=== PATIENT | female | born 1950 | race Caucasian/White ===

== ENCOUNTER 2017-03-07 10:28 | Emergency (ER) | payer MEDICARE, MEDICAID ==
[~2017-03-07] VITALS: Ht 162.6 cm; Wt 61.2 kg
--- OUTSIDE RECORDS SUMMARY | 2017-03-07 10:38 | External Medical Summary Rpt ---
Author Author NILE Mejía, [employer] Organization [employer] Address Unknown Phone Unavailable Results Comprehensive metabolic 2000 panel in Serum or Plasma Observa Value Referen Units Interpr Notes Date tion ce etation Range Albumin/G 1.1 - 1.8 No Normal No Nov 27 lobulin informati informati 2016 8:25 [Mass on in on in AM ratio] in source source Serum or data data Plasma Albumin 3.4 - 5.0 gm/dL Normal No Nov 27 [Mass/vol informati 2016 8:25 ume] in on in AM Serum or source Plasma data Alkaline 46 - 116 U/L High No Nov 27 phosphata informati 2016 8:25 se on in AM [Enzymati source c data activity/ volume] in Serum or Plasma Bilirubin 0.2 - 1.0 mg/dL Normal No Nov 27 .total informati 2016 8:25 [Mass/vol on in AM ume] in source Serum or data Plasma Urea 7 - 18 mg/dL Normal No Nov 27 nitrogen informati 2016 8:25 [Mass/vol on in AM ume] in source Serum or data Plasma Calcium 8.5 - mg/dL Normal No Nov 27 [Mass/vol 10.1 informati 2017 8:25 ume] in on in AM Serum or source Plasma data Chloride 98 - 107 mmoL/L Normal No Nov 27 [Moles/vo informati 2016 8:25 lume] in on in AM Serum or source Plasma data Carbon 21.0 - mmoL/L Normal No Nov 27 dioxide, 32.0 informati 2017 8:25 total on in AM [Moles/vo source lume] in data Serum or Plasma Creatinin 0.55 - mg/dL Normal No Nov 27 e 1.02 informati 2016 8:25 [Mass/vol on in AM ume] in source Serum or data Plasma Estimated 59- ML/MIN No REFERENCE Nov 27 informati RANGE: 2017 8:25 glomerula on in >60 AM r source ML/MIN/1. filtratio data 73 SQUARE n rate METERSIf (GF this patient is -A merican, then multiply theresult by 1.210. Globulin 1.3 - 3.2 gm/dL Normal No Nov 27 [Mass/vol informati 2016 8:25 ume] in on in AM Serum source data Glucose 74 - 106 mg/dL Normal No Nov 27 [Mass/vol informati 2016 8:25 ume] in on in AM Serum or source Plasma data Potassium 3.5 - 5.1 mmoL/L Normal No Nov 27 inform2016 8:25 [Moles/vo on in AM lume] in source Serum or data Plasma Sodium 136 - 145 mmoL/L Normal No Nov 27 [Moles/vo informati 2016 8:25 lume] in on in AM Serum or source Plasma data Aspartate 15 - 37 U/L Normal No Nov 27 inform2016 8:25 aminotran on in AM sferase source [Enzymati data c activity/ volume] in Serum or Plasma Alanine 12 - 78 U/L Normal No Nov 27 aminotran informati 2016 8:25 sferase on in AM [Enzymati source c data activity/ volume] in Serum or Plasma Protein 6.4 - 8.2 gm/dL Normal No Nov 27 [Mass/vol informati 2016 8:25 ume] in on in AM Serum or source Plasma data Lipid 1996 panel in Serum or Plasma Observa Value Referen Units Interpr Notes Date tion ce etation Range Cholester < 200 mg/dL No No Nov 27 ol informati informati 2016 8:25 [Moles/vo on in on in AM lume] in source source Unspecifi data data ed specimen Cholester 40 - 60 MG/DL Normal No Nov 27 ol in HDL informati 2016 8:25 on in AM [Mass/vol source ume] in data Serum or Plasma Cholester 0 - 130 mg/dL Normal No Nov 27 ol in LDL informati 2016 8:25 on in AM [Mass/vol source ume] in data Serum or Plasma by calculati on Triglycer 30 - 200 mg/dL Normal No Nov 27 cliff informati 2016 8:25 [Moles/vo on in AM lume] in source Serum or data Plasma Cholester 0 - 40 No Normal No Nov 27 ol in informati informati 2016 8:25 VLDL on in on in AM [Mass/vol source source ume] in data data Serum or Plasma Thyrotropin [Units/volume] in Serum or Plasma Observa Value Referen Units Interpr Notes Date tion ce etation Range Thyrotrop 0.358 - uIU/ml Normal No Nov 27 in 3.740 informati 2017 8:25 [Units/vo on in AM lume] in source Serum or data Plasma
--- OUTSIDE RECORDS SUMMARY | 2017-03-07 10:38 | External Medical Summary Rpt | CCD ---
Author Author , NILE DOWD Address Unknown Phone [email or web address] Providers Care Financial Analysis Manager Name Role Phone ANGLE GRIMES, Unavailable Unavailable ANGLE GRIMES JOHN C, Unavailable Unavailable DONTE ROJAS [facility] [place]available [place] [facility], [facility] Unavailable CLINIC, [facility] Unavailable Unavailable INTERNAL MED, [facility] INTER[facility] DARRYL HOLLINGSWORTH, Unavailable Unavailable DARRYL HOLLINGSWORTH [facility], Unavailable Unavailable [facility] Purpose Continuity of Care Document - 08-17-2008 through 2016 Problems Code Diagnosis DOS Provider Status E039 HYPOTHYROID 11-27-2016 [facility] UNSPECIFIED INC E785 HYPERLIPIDE 11-27-2016 [facility] UNSPEC[facility]IED INC 2449 UNSPECIFIED 04-28-2013 [facility] HYPOTHYROID [place] IS[place] 41130 DIAB W/O 04-28-2013 [facility] COMP TYPE PHYSICIANS II/UNS NOT LA STATED UNCNTRL 2724 OTHER AND 04-28-2013 [facility] UNSPECIFIED PHYSICIANS [place] HYPERLIPIDE MARVA V5869 LONG-TERM 04-28-2013 [facility]BINED (CURRENT) PHYSICIANS USE OF [place] OTHER MEDICATIONS 99359 NUCLEAR 09-18-2012 [facility] SCLEROSIS GRE 11433 UNSPECIFIED 09-18-2012 [facility] SUBJECTIVE GRE VISUAL DISTURBANCE 50584 OTHER 09-18-2012 [facility] VISUAL GRE DISTORTIONS AND ENTOPTIC PHENOMENA 63556 OTHER 09-18-2012 [facility] VITREOUS GRE OPACITIES 6929 CONTACT 08-27-2012 [facility] DERMATITIS& HEALTH OTHER CLINIC [facility] DUE UNSPEC CAUSE 2722 MIXED 05-25-2012 [facility] HYPERLIPIDE [facility] CLINIC 4611 ACUTE 05-25-2012 ON LICENSE OF [facility] SINUSITIS CLINIC 462 ACUTE 05-25-2012 [facility] PHARYNGITIS HEALTH CLINIC 6926 CONTACT 09-21-2010 [facility] [place] OTHER INTERNAL ECZEMA DUE MED TO PLANTS 82068 OCCL&STENOS 05-18-2009 [facility] 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 7804 DIZZINESS 05-18-2009 [facility] PSC 39236 ALTERED 05-18-2009 [facility] STATUS 7840 HEADACHE 05-18-2009 [facility] PSC 7842 SWELLING 05-18-2009 [facility] LUMP IN HEAD AND NECK 29048 SPASM OF 05-17-2009 [facility] INTERNAL MED 87072 CHEST PAIN 05-17-2009 [facility] UNSPECIFIED [facility] INTERNAL MED 7262 OTHER 05-08-2009 [facility] AFFECTIONS [facility] OF SHOULDER INTERNAL REGION NEC MED 7820 DISTURBANCE 05-08-2009 [facility] SENSATION INTERNAL MED 7242 LUMBAGO 08-17-2008 [facility] Encounters Encounter Start End Date Code Location Performer Type Date [facility] - 7 7 [facility] [address] [place] [address], [address] CRITICAL LIN[facility] WIGGINS 0 0 [facility]
--- OUTSIDE RECORDS SUMMARY | 2017-03-07 10:38 | External Medical Summary Rpt | CCD ---
Author Author , NILE DOWD Address Unknown Phone [email or web address] Care Team Providers Care Warehouse Worker Name Role Phone ANGLE GRIMES, Unavailable Unavailable ANGLE GRIMES JOHN C, Unavailable Unavailable DONTE ROJAS [facility] Unavailable [place]available [place] [place] [facility] Unavailable Unavailable [facility], [facility] Unavailable Unavailable CLINIC, [facility] Unavailable Unavailable INTERNAL MED, [facility] INTERNAL MED DARRYL HOLLINGSWORTH, Unavailable Unavailable DARRYL HOLLINGSWORTH [facility], Unavailable Unavailable [facility] Purpose Continuity of Care Document - 08-17-2008 through 2016 Problems Code Diagnosis DOS Provider Status E039 HYPOTHYROID 11-27-2016 [facility] UNSPEC[facility]IED [facility] E785 HYPERLIPIDE 11-27-2016 [facility] UNSPEC[facility]IED INC 2449 UNSPECIFIED 04-28-2013 [facility] HYPOTHYROID [place] IS[place] 09551 DIAB W/O 04-28-2013 [facility] COMP TYPE PHYSICIANS II/UNS NOT [place] STATED UNCNTRL 2724 OTHER AND 04-28-2013 [facility] UNSPECIFIED PHYSICIANS [place] HYPERLIPIDE [facility] V5869 LONG-TERM 04-28-2013 [facility]BINED (CURRENT) PHYSICIANS USE OF [place] OTHER MEDICATIONS 39484 NUCLEAR 09-18-2012 [facility] SCLEROSIS GRE 64859 UNSPECIFIED 09-18-2012 [facility] SUBJECTIVE GRE VISUAL DISTURBANCE 92468 OTHER 09-18-2012 [facility] VISUAL GRE DISTORTIONS AND ENTOPTIC PHENOMENA 84642 OTHER 09-18-2012 [facility] VITREOUS GRE OPACITIES 6929 CONTACT 08-27-2012 [facility] DERMATITIS& HEALTH OTHER CLINIC [facility] DUE UNSPEC CAUSE 2722 MIXED 05-25-2012 [facility] HYPERL[facility]IDE [facility] 4611 ACUTE 05-25-2012 [facility] SINUSITIS CLINIC 462 ACUTE 05-25-2012 [facility] PHARYNGITIS [facility]ALTH CLINIC 6926 CONTACT 09-21-2010 [facility] [place] OTHER INTERNAL [place]ZEMA DUE MED TO PLANTS 76795 OCCL&STENOS 05-18-2009 [facility] [place] [facility] 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 7804 DIZZINESS 05-18-2009 [facility] [place] [facility] PSC 16885 ALTERED 05-18-2009 [facility] STATUS 7840 HEADACHE 05-18-2009 [facility] [facility] PSC 7842 SWELLING 05-18-2009 [facility] LUMP IN HEAD AND NECK 20261 SPASM OF 05-17-2009 [facility] [place] INTERNAL MED 76916 CHEST PAIN 05-17-2009 [facility] UNSPECIFIED [facility] INTERNAL MED 7262 OTHER 05-08-2009 [facility] AFFECTIONS [facility] OF SHOULDER INTERNAL REGION NEC MED 7820 DISTURBANCE 05-08-2009 [facility] SENSATION INTERNAL MED 7242 LUMBAGO 08-17-2008 [facility] Encounters Encounter Start End Date Code Location Performer Type Date [facility] - [address] [facility] [address] [place] [address] CLINIC, [facility] [address] [place] [address] CRITICAL [facility] 0 0 [facility]
--- OUTSIDE RECORDS SUMMARY | 2017-03-07 10:38 | External Medical Summary Rpt | CCD ---
Author Author , NILE DOWD Address Unknown Phone [email or web address] Immunization Name Date Rout CVX Reac Dose Comm Prov Is Faci e tion ent ider Refu lity Give sed n Infl 10-2 Intr 0.5 Hist PD20 No PD20 uenz 4-20 amus mL oric 256 256 a 17 cula al Quad r Info rmat W/Pr ion es - Sour ce Unsp ecif ied
--- OUTSIDE RECORDS SUMMARY | 2017-03-07 10:38 | External Medical Summary Rpt | CCD ---
Author Author , NILE DOWD Address Unknown Phone [email or web address] Care Team Providers Care Lead Solutions Architect Name Role Phone ANGLE GRIMES, Unavailable Unavailable ANGLE GRIMES JOHN C, Unavailable Unavailable DONTE ROJAS [facility] Unavailable [place]available [place] [place] [facility] Un[facility], [facility] Unavailable CLINIC, [facility] Unavailable Unavailable INTERNAL MED, [facility] INTERNAL MED DARRYL HOLLINGSWORTH, Unavailable Unavailable DARRYL HOLLINGSWORTH [facility], Unavailable Unavailable [facility] Purpose Continuity of Care Document - 08-17-2008 through 2016 Problems Code Diagnosis DOS Provider Status E039 HYPOTHYROID 11-27-2016 [facility] UNSPEC[facility] E785 HYPERLIPIDE 11-27-2016 [facility] UNSPEC[facility]IED INC 2449 UNSPECIFIED 04-28-2013 [facility] HYPOTHYROID [place] IS[place] 87591 DIAB W/O 04-28-2013 [facility] COMP TYPE PHYSICIANS II/UNS NOT [place] STATED UNCNTRL 2724 OTHER AND 04-28-2013 [facility] UNSPECIFIED PHYSICIANS [place] HYPERLIPIDE [facility] V5869 LONG-TERM 04-28-2013 [facility] (CURRENT) PHYSICIANS USE OF [place] OTHER MEDICATIONS 09362 NUCLEAR 09-18-2012 [facility] SCLEROSIS GRE 26293 UNSPECIFIED 09-18-2012 [facility] SUBJECTIVE GRE VISUAL DISTURBANCE 26350 OTHER 09-18-2012 [facility] VISUAL GRE DISTORTIONS AND ENTOPTIC PHENOMENA 24819 OTHER 09-18-2012 [facility] VITREOUS GRE OPACITIES 6929 CONTACT 08-27-2012 [facility] DERMATITIS& HEALTH OTHER CLINIC EC[facility] DUE UNSPEC CAUSE 2722 MIXED 05-25-2012 [facility] HYPERLIPIDE [facility] CL[facility]IC 4611 ACUTE 05-25-2012 [facility] SINUSITIS CLINIC 462 ACUTE 05-25-2012 [facility] PHARYNGITIS HEALTH CLINIC 6926 CONTACT 09-21-2010 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 7804 DIZZINESS 05-18-2009 [facility] PSC 70167 ALTERED 05-18-2009 [facility] STATUS 7840 HEADACHE 05-18-2009 [facility] PSC 7842 SWELLING 05-18-2009 [facility] LUMP IN HEAD AND NECK 39226 SPASM OF 05-17-2009 [facility] INTER[facility] MED 28878 CHEST PAIN 05-17-2009 [facility] UNSPECIFIED [facility] INTERNAL MED 7262 OTHER 05-08-2009 [facility] AFFECTIONS [facility] OF SHOULDER INTERNAL REGION NEC MED 7820 DISTURBANCE 05-08-2009 [facility] SENSATION INTERNAL MED 7242 LUMBAGO 08-17-2008 [facility] Encounters Encounter Start End Date Code Location Performer Type Date [facility] - 7 7 [facility] [address] [place] [address], [address] CRITICAL LINDA WIGGINS 0 0 [facility]
--- OUTSIDE RECORDS SUMMARY | 2017-03-07 10:38 | External Medical Summary Rpt | CCD ---
Author Author , NILE DOWD Address Unknown Phone [email or web address] Immunization Name Date Rout CVX Reac Dose Comm Prov Is Faci e tion ent ider Refu lity Give sed n Infl 10-2 Intr 0.5 Hist PD20 No PD20 uenz 4-20 amus mL oric 256 256 a 17 cula al Quad r Info rmat W/Pr ion es - Sour ce Unsp ecif ied
--- OUTSIDE RECORDS SUMMARY | 2017-03-07 10:38 | External Medical Summary Rpt | CCD ---
Author Author , NILE DOWD Address Unknown Phone [email or web address] Care Team Providers Care Solutions Manager Name Role Phone ANGLE GRIMES, Unavailable Unavailable ANGLE GRIMES JOHN C, Unavailable Unavailable DONTE ROJAS [facility] Unavailable [place]available [place] [facility] [place] [facility] Unavailable Unavailable [facility], [facility] Unavailable Unavailable CLINIC, [facility] Unavailable Unavailable INTERNAL MED, [facility] INTERNAL MED DARRYL HOLLINGSWORTH, Unavailable Unavailable DARRYL HOLLINGSWORTH [facility], Unavailable Unavailable [facility] Purpose Continuity of Care Document - 08-17-2008 through 2016 Problems Code Diagnosis DOS Provider Status E039 HYPOTHYROID 11-27-2016 [facility] UNSPEC[facility]IED INC E785 HYPERLIPIDE 11-27-2016 [facility] UNSPECIFIED INC 2449 UNSPECIFIED 04-28-2013 [facility] HYPOTHYROID [place] ISM 99171 DIAB W/O 04-28-2013 [facility] COMP TYPE PHYSICIANS II/UNS NOT LA STATED UNCNTRL 2724 OTHER AND 04-28-2013 [facility] UNSPECIFIED PHYSICIANS [place] HYPERLIPIDE [facility] V5869 LONG-TERM 04-28-2013 COMBIN[facility] (CURRENT) PHYSICIANS USE OF [place] OTHER MEDICATIONS 68189 NUCLEAR 09-18-2012 [facility] SCLEROSIS GRE 04491 UNSPECIFIED 09-18-2012 [facility] SUBJECTIVE GRE VISUAL DISTURBANCE 84247 OTHER 09-18-2012 [facility] VISUAL GRE DISTORTIONS AND ENTOPTIC PHENOMENA 95360 OTHER 09-18-2012 [facility] VITREOUS GRE OPACITIES 6929 CONTACT 08-27-2012 [facility] DERMATITIS& HEALTH OTHER CLINIC ECZ[facility] DUE UNSPEC CAUSE 2722 MIXED 05-25-2012 [facility] HYPERLIPIDE HEALTH [facility] CLINIC 4611 ACUTE 05-25-2012 [facility] SINUSITIS CLINIC 462 ACUTE 05-25-2012 [facility] PHARYNGITIS HEALTH CLINIC 6926 CONTACT 09-21-2010 [facility] [place] OTHER INTERNAL ECZ[place] DUE MED TO PLANTS 55605 OCCL&STENOS 05-18-2009 [facility] 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 7804 DIZZINESS 05-18-2009 [facility] PSC 70015 ALTERED 05-18-2009 [facility] STATUS 7840 HEADACHE 05-18-2009 [facility] PSC 7842 SWELLING 05-18-2009 [facility] LUMP IN HEAD AND NECK 67503 SPASM OF 05-17-2009 [facility] [place] INTERNAL MED 22353 CHEST PAIN 05-17-2009 [facility] UNSPECIFIED VALLEY INTERNAL MED 7262 OTHER 05-08-2009 [facility]FFE[facility] OF SHOULDER INTERNAL REGION NEC MED 7820 DISTURBANCE 05-08-2009 [facility] SENSATION INTERNAL MED 7242 LUMBAGO 08-17-2008 [facility] Encounters Encounter Start End Date Code Location Performer Type Date [facility] - 7 7 [facility] [address] [place] [address] CLINIC, [facility] [address] [place] [address] CRITICAL [facility] 0 0 [facility]
--- NOTE | 2017-03-07 10:52 | Urgent Treatment Center Report ---
History of Present Issue Date/Time Seen by Provider 03/07/17 1045 Visit Reason Pt arrived:Walked Presenting Problem:SORE THROAT, EAR ACHE BEGAN LAST NIGHT Location if Accident: Onset of symptoms date/time:/ or onset unknown for:MEDICAL HX UNKNOWN Have you (or family members/close friends) recently traveled outside the [place]? N If Yes, where/when: Have you had exposure to infectious disease within the past month? TB? Other? Specify: Patient state that she has been having pain in her right ear and her throat State that it hurts to swallow and she feels like her ear is swollen States that earache began last night and has continued to get worse State that when she woke up this morning she noticed that her lymph nodes on right side of neck was swollen and tender so she came in to get checked out ALLERGIES Coded Allergies: Penicillins (03/07/17) History Medical History General CAD? No Angina: No [place]: No Hypertension? No Hyperlipidemia? No CHF? No DVT? No Immunization HX DT/Tetanus Unknown Surgical Hx Previous Surgery?N Social History Smoking Hx Smoker: Current Every Day Smoker Tobacco: Yes Type Cigarettes Review of Systems All Other Systems Reviewed and Negative Constitutional chills, fever ENT ear pain, nose congestion, throat pain. Respiratory cough Physical Exam Vital Signs Vital Signs Date Time Temp Pulse Resp B/P Pulse O2 O2 Flow FiO2 Ox Delivery Rate 03/07 1043 98.8 78 18 133/67 97 General Appearance normal appearance, WD/WN, no apparent distress Ear, Nose, Throat sinus pain/drainage, nasal congestion, Right ear red, TM buldging, throat red irritated no exudate noted, submandibular nodes swollen right side Respiratory Status Yes: trachea midline, chest symmetrical, non tender chest. No: respiratory distress. Lung Sounds bilateral: normal breath sounds, lungs clear. Cardiovascular normal exam, regular rate/rhythm, no peripheral edema Neurologic alert, normal exam, oriented x 3 Medical Decision Making LABS/Meds/Orders Pt receiving controlled substance in ED? No Results/Orders Laboratory Tests 03/07/17 1042: Group A Strep Screen NOT DETECTED Orders Procedure Date/time Status [facility] STREP SCREEN 03/07 104 Complete Progress [facility] Progress Notes Comment Patient state that she is allergic to penicillin however she is able to take Keflex with no reaction Departure Departure Time of Disposition 1106 Disposition DC Home or Self Care(routine) Clinical Impression Primary Impression: Upper respiratory infection Qualifiers: URI type: unspecified URI Qualified Code: J06.9 - Acute upper respiratory infection, unspecified Condition STABLE Referrals Angel PARADA,Matias (Family): 3 Days-Call Office Patient Instructions DI for Ear Pain-Adult, Sore Throat Additional Instructions * Monitor Temp. Tylenol and/or Ibuprofen as needed. ER if fever is no less than 101 despite alternating Tylenol and Ibuprofen * Encourage fluids, water, Gatorade, powerade, pedialyte if infant/toddler/or child * Warm salt water gargles for throat irritation *Warm fluids *Sore throat lozenges *Sleep elevated *humidifier or vaporizer Lots of rest Increase fluids, water, Gatorade, powerade Discharge Counseling Counseled pt/family regarding diagnosis, test results, medications/RX, home care, follow up needs Prescriptions Current Visit Scripts CEPHALEXIN (Keflex 500MG Capsule) 500 MG PO BID #20 CAP at 1111
--- NOTE | 2017-03-07 10:52 | Urgent Treatment Center Report ---
History of Present Issue Date/Time Seen by Provider 03/07/17 1045 Visit Reason Pt arrived:Walked Presenting Problem:SORE THROAT, EAR ACHE BEGAN LAST NIGHT Location if Accident: Onset of symptoms date/time:/ or onset unknown for:MEDICAL HX UNKNOWN Have you (or family members/close friends) recently traveled outside the [place]? N If Yes, where/when: Have you had exposure to infectious disease within the past month? TB? Other? Specify: Patient state that she has been having pain in her right ear and her throat State that it hurts to swallow and she feels like her ear is swollen States that earache began last night and has continued to get worse State that when she woke up this morning she noticed that her lymph nodes on right side of neck was swollen and tender so she came in to get checked out ALLERGIES Coded Allergies: Penicillins (03/07/17) History Medical History General CAD? No Angina: No [place]: No Hypertension? No Hyperlipidemia? No CHF? No DVT? No Immunization HX DT/Tetanus Unknown Surgical Hx Previous Surgery?N Social History Smoking Hx Smoker: Current Every Day Smoker Tobacco: Yes Type Cigarettes Review of Systems All Other Systems Reviewed and Negative Constitutional chills, fever ENT ear pain, nose congestion, throat pain. Respiratory cough Physical Exam Vital Signs Vital Signs Date Time Temp Pulse Resp B/P Pulse O2 O2 Flow FiO2 Ox Delivery Rate 03/07 1043 98.8 78 18 133/67 97 General Appearance normal appearance, WD/WN, no apparent distress Ear, Nose, Throat sinus pain/drainage, nasal congestion, Right ear red, TM buldging, throat red irritated no exudate noted, submandibular nodes swollen right side Respiratory Status Yes: trachea midline, chest symmetrical, non tender chest. No: respiratory distress. Lung Sounds bilateral: normal breath sounds, lungs clear. Cardiovascular normal exam, regular rate/rhythm, no peripheral edema Neurologic alert, normal exam, oriented x 3 Medical Decision Making LABS/Meds/Orders Pt receiving controlled substance in ED? No Results/Orders Laboratory Tests 03/07/17 1042: Group A Strep Screen NOT DETECTED Orders Procedure Date/time Status [facility] STREP SCREEN 03/07 104 Complete Progress [facility] Progress Notes Comment Patient state that she is allergic to penicillin however she is able to take Keflex with no reaction Departure Departure Time of Disposition 1106 Disposition DC Home or Self Care(routine) Clinical Impression Primary Impression: Upper respiratory infection Qualifiers: URI type: unspecified URI Qualified Code: J06.9 - Acute upper respiratory infection, unspecified Condition STABLE Referrals Angel PARADA,Matias (Family): 3 Days-Call Office Patient Instructions DI for Ear Pain-Adult, Sore Throat Additional Instructions * Monitor Temp. Tylenol and/or Ibuprofen as needed. ER if fever is no less than 101 despite alternating Tylenol and Ibuprofen * Encourage fluids, water, Gatorade, powerade, pedialyte if infant/toddler/or child * Warm salt water gargles for throat irritation *Warm fluids *Sore throat lozenges *Sleep elevated *humidifier or vaporizer Lots of rest Increase fluids, water, Gatorade, powerade Discharge Counseling Counseled pt/family regarding diagnosis, test results, medications/RX, home care, follow up needs Prescriptions Current Visit Scripts CEPHALEXIN (Keflex 500MG Capsule) 500 MG PO BID #20 CAP at 1111
[2017-03-07] MEDS ORDERED: KEFLEX 500MG.500 MG PO (11:10)
[2017-03-07 11:13] VITALS: BP 133/60
== END 2017-03-07 11:14 | disposition home or self-care (01) ==
LOC: UTC 10:28
DX: J06.9 Acute upper respiratory infection, unspecified (principal); F17.210 Nicotine dependence, cigarettes, uncomplicated; Z88.0 Allergy status to penicillin